=== PATIENT | male | born 1990 ===

== ENCOUNTER 2022-03-15 07:26 | Emergency (ER) | payer OTHER ==
--- NOTE | 2022-03-15 08:17 | ED ---
General Adult HPI - General Chief complaint: Skin/Abscess/Foreign Body Stated complaint: Facial Swelling Time Seen by Provider: 03/15/22 07:30 Source: patient, RN notes reviewed, old records reviewed Mode of arrival: ambulatory Limitations: no limitations - History of Present Illness Initial comments: This is a 31-year-old male who presents emergency Department with what he states his assisted is nose. Patient states she's got multiple lesions in the past. Patient states he went to urgent care stay start him on Bactrim but today it hasn't gotten any better so he came here thought maybe it could be lanced. Patient doesn't have any particular area of swelling or fluctuance. Patient denies any fever or chills. Patient states it is a little bit sore next to the left Neurontin his face but there is no redness in that area and there is no fluctuant abscess incised and was on the outside of his nose but he wanted another opinion. - Related Data Previous Rx's Medication Instructions Recorded Cephalexin [Keflex] 500 mg PO Q6HR #28 cap 03/15/22 Mupirocin 2% Oint [Bactroban 2% 1 applic NASAL BID #22 gm 03/15/22 Oint] Allergies Allergy/AdvReac Type Severity Reaction Status Date / Time amoxicillin Allergy Rash/Hives Verified 03/15/22 07:33 Review of Systems ROS Statement: Those systems with pertinent positive or pertinent negative responses have been documented in the HPI. ROS Other: All systems not noted in ROS Statement are negative. Past Medical History Past Medical History: No Reported History Past Surgical History: Orthopedic Surgery Past Psychological History: No Psychological Hx Reported Smoking Status: Current every day smoker, Vaper Past Alcohol Use History: Occasional Past Drug Use History: Marijuana General Exam - General Exam Comments Initial Comments: GENERAL: Patient is well-developed and well-nourished. Patient is nontoxic and well- hydrated and is in mild distress. ENT: Neck is soft and supple. No significant lymphadenopathy is noted. Oropharynx is clear. Moist mucous membranes. Neck has full range of motion without eliciting any pain. EYES: The sclera were anicteric and conjunctiva were pink and moist. Extraocular movements were intact and pupils were equal round and reactive to light. Eyelids were unremarkable. SKIN: The skin overlying the left naris is very red and extremely tender there is no area of fluctuance for possible I&D. The area next to his nose is mildly tender but there is no erythema or swelling. NEUROLOGIC: Patient is alert and oriented x3. Cranial nerves II through XII are grossly intact. Motor and sensory are also intact. Normal speech, volume and content. Symmetrical smile. MUSCULOSKELETAL: Normal extremities with adequate strength and full range of motion. LYMPHATICS: No significant lymphadenopathy is noted PSYCHIATRIC: Normal psychiatric evaluation. Limitations: no limitations Course Vital Signs 03/15/22 07:30 Temperature 98.4 F Pulse Rate 111 H Respiratory 18 Rate Blood Pressure 165/103 O2 Sat by Pulse 97 Oximetry Disposition Clinical Impression: Cellulitis of nose Disposition: HOME SELF-CARE Condition: Good Instructions (If sedation given, give patient instructions): Cellulitis (ED) Additional Instructions: Patient should take Motrin 600 mg every 6 hours and Tylenol with codeine for pain. Prescriptions: Mupirocin 2% Oint [Bactroban 2% Oint] 1 applic NASAL BID #22 gm Cephalexin [Keflex] 500 mg PO Q6HR #28 cap Is patient prescribed a controlled substance at d/c from ED?: No Referrals: None,Stated [Primary Care Provider] - 1-2 days Time of Disposition: 08:22
[2022-03-15] MEDS ORDERED: SULFAMETH-TMP DS STARTER PACK 2 TAB BTL PO STA (08:18)
[2022-03-15] MEDS ORDERED: ACET/COD 300 MG/30 MG STARTER PACK 6 TAB BTL PO STA (08:23)
[2022-03-15 08:43] VITALS: BP 151/96; PULSE 95; RESP 16; TEMP 98.1
== END 2022-03-15 09:23 | disposition home or self-care (01) ==
LOC: EC 07:26
DX: J34.0 Abscess, furuncle and carbuncle of nose (principal); F17.209 Nicotine dependence, unspecified, with unspecified nicotine-induced disorders; Z88.0 Allergy status to penicillin
CPT/HCPCS: 99283

== ENCOUNTER → 2022-10-12 | Outpatient (CLI) | payer BC ==
--- NOTE | 2022-10-12 11:19 | CA ---
Exercise Stress Test Report Name: Evgeny Zuluaga Exam Date: 10/12/2022 09:10 Exam Location: [place] Stress Ht (in): 74 Wt (lb): 220 BSA: 2.26 Ordering Phys: Nola Arguelles DO Referring Phys: Cierra Carrera PAC Technologist: Humberto Jaramillo Age: 32 Gender: M : 1990 Procedure CPT: Indications: R00.2 palpitations ICD-10 Codes: Patient History: DIFFICULTY IN BREATHING, PALPITATIONS, FAMILY HX OF HEART DISEASE, CURRENT SMOKER (VAPE PEN X 20 YEARS), ASTHMA Medications: PREDNISONE Meds past 24 hrs: Pretest Chest Pain: STRESS TEST Shlomo Protocol Exercise Duration (min:sec): 09:[address] Depressions (mm): Angina Score: Martin Score: Resting HR (bpm): 68 Peak HR (bpm): 159 Resting BP (mmHg): 128 / 75 Peak BP (mmHg): 207 / 56 MPHR: 186 Target HR: 158 % MPHR: 85 METS: 10.9 Total Dose: Peak Dose: Atropine: Double Product: 71953 BP Response: Stress Termination: TARGET HR REACHED/MAX EXERTION Stress Symptoms: NO SYMPTOMS Stress Summary: ECG ANALYSIS Resting ECG: Stress ECG: CONCLUSIONS Baseline heart rate 75 beats a minute, Baseline blood pressure 128/75 mmHg line baseline 12-lead EKG shows inferior lateral ST elevation(early repolarization abnormality Patient exercised on a Shloom protocol for 9 minutes 25 seconds achieving a peak heart rate of 154 beats a minute Mildly hypertensive response to exercise plan. Blood pressure 207/56 minutes mercury We seizures for ischemia No arrhythmias Impression good exercise capacity with improvement in ST segment elevation with exercise Peak blood pressure was 207/56 mmHg Patient complained of shortness of breath Dr. Mani Castorena MD (Electronically Signed) Final Date: 12 October 2022 11:18
== END | disposition home or self-care (01) ==
LOC: RADNMMAIN 08:50
PROVIDERS: ATTEND Family Medicine
DX: R00.2 Palpitations (principal); R06.02 Shortness of breath
CPT/HCPCS: 93017

== ENCOUNTER 2023-05-22 22:22 | Emergency (ER) | payer OTHER, BC ==
[2023-05-22 22:29] VITALS: RESP 18; TEMP 98.7
[2023-05-22] MEDS ORDERED: LIDOCAINE 1% INJ 10MG/ML (20 ML MDV) SQ ONE (22:59)
[2023-05-22] MEDS ORDERED: IBUPROFEN 800 MG TAB PO STA (23:03)
--- NOTE | 2023-05-23 00:27 | ED ---
Wound/Laceration HPI - General Chief Complaint: Wound/Laceration Stated Complaint: Cut thumb open- [facility] Time Seen by Provider: 05/22/23 22:59 Source: patient Mode of arrival: ambulatory Limitations: no limitations - History of Present Illness Initial Comments: Patient is a 32-year-old male who presents to the emergency department for laceration. Patient had left thumb pinched on a press at work. He has a shunt to the webbing of his left thumb. He reports mild pain. No numbness or tingling. No issues of range of motion. - Related Data Previous Rx's Medication Instructions Recorded Cephalexin [Keflex] 500 mg PO Q6HR #28 cap 03/15/22 Mupirocin 2% Oint [Bactroban 2% 1 applic NASAL BID #22 gm 03/15/22 Oint] Ibuprofen [Motrin] 800 mg PO Q8HR PRN #30 tab 05/23/23 Allergies Allergy/AdvReac Type Severity Reaction Status Date / Time amoxicillin Allergy Rash/Hives Verified 03/15/22 07:33 Review of Systems ROS Statement: Those systems with pertinent positive or pertinent negative responses have been documented in the HPI. ROS Other: All systems not noted in ROS Statement are negative. Past Medical History Past Medical History: No Reported History Past Surgical History: Orthopedic Surgery Past Psychological History: No Psychological Hx Reported Smoking Status: Current every day smoker, Vaper Past Alcohol Use History: Occasional Past Drug Use History: Marijuana General Exam Limitations: no limitations General appearance: alert Respiratory exam: Present: normal lung sounds bilaterally. Absent: respiratory distress, wheezes, rales, rhonchi, stridor Cardiovascular Exam: Present: regular rate, normal rhythm, normal heart sounds. Absent: systolic murmur, diastolic murmur, rubs, gallop, clicks Neurological exam: Present: alert Psychiatric exam: Present: normal affect, normal mood Skin exam: Present: warm, dry, intact, normal color, other (2 cm laceration webbing of left from no deep structures visualized. Full range of motion. Neurovascularly intact). Absent: rash Course Vital Signs 05/22/23 05/23/23 22:26 00:39 Temperature 98.7 F Pulse Rate 82 73 Respiratory 18 18 Rate Blood Pressure 132/80 145/87 O2 Sat by Pulse 97 96 Oximetry Procedures - Laceration Laceration #1 Indication: laceration Site: hand Description: irregular Pre-repair: wound explored, irrigated extensively Type of Sutures: nylon Size of Sutures: 4-0 Number of Sutures: 3 Technique: simple, interrupted Medical Decision Making - Medical Decision Making Was pt. sent in by a medical professional or institution ([facility] Burnham, CELLOPHANE WORKER, urgent care, hospital, or [facility]...) When possible be specific @ -No Did you speak to anyone other than the patient for history (EMS, parent, family, police, friend...)? What history was obtained from this source @ -No Did you review nursing and triage notes (agree or disagree)? Why? @ -I reviewed and agree with nursing and triage notes Were old charts reviewed (outside hosp., previous admission, EMS record, old EKG, old radiological studies, urgent care reports/EKG's, [facility] records)? Report findings @ -No old charts were reviewed Differential Diagnosis (chest pain, altered mental status, abdominal pain women, abdominal pain men, vaginal bleeding, weakness, fever, dyspnea, syncope, headache, dizziness, GI bleed, back pain, seizure, CVA, palpatations, mental health)? @ -Laceration, abrasion, tendon injury EKG interpreted by me (3pts min.). @ -As above X-rays interpreted by me (1pt min.). @ -None done CT interpreted by me (1pt min.). @ -None done U/S interpreted by me (1pt. min.). @ -None done What testing was considered but not performed or refused? (CT, X-rays, U/S, labs)? Why? @ -None What meds were considered but not given or refused? Why? @ -None Did you discuss the management of the patient with other professionals (professionals i.e. [facility] Burnham, CELLOPHANE WORKER, lab, RT, psych nurse, transition social worker, edi programmer analyst, teacher, president and chief commercial officer, caseworker intake)? Give summary @ -No Was smoking cessation discussed for >3mins.? @ -No Was critical care preformed (if so, how long)? @ -No Were there social determinants of health that impacted care today? How? (Homelessness, low income, unemployed, alcoholism, drug addiction, transportation, low edu. Level, literacy, decrease access to med. care, [facility], rehab)? @ -No Was there de-escalation of care discussed even if they declined (Discuss DNR or withdrawal of care, Hospice)? DNR status @ -No What co-morbidities impacted this encounter? (DM, HTN, Smoking, COPD, CAD, Cancer, CVA, ARF, Chemo, Hep., AIDS, mental health diagnosis, sleep apnea, morbid obesity)? @ -[None] Was patient admitted / discharged? Hospital course, mention meds given and route, prescriptions, significant lab abnormalities, going to OR and other pertinent info. @ -Discharged Undiagnosed new problem with uncertain prognosis? @ -[No] Drug Therapy requiring intensive monitoring for toxicity (Heparin, Nitro, Insulin, Cardizem)? @ -[No] Were any procedures done? @ -[No] Diagnosis/symptom? @ -[Laceration Acute, or Chronic, or Acute on Chronic? @ -Acute Uncomplicated (without systemic symptoms) or Complicated (systemic symptoms)? @ -Uncomplicated Side effects of treatment? @ -[No] Exacerbation, Progression, or Severe Exacerbation? @ -[No] Poses a threat to life or bodily function? How? (Chest pain, [place], [place], pneumonia, PE, COPD, DKA, ARF, appy, cholecystitis, CVA, Diverticulitis, Homicidal, Suicidal, threat to staff... and all critical care pts) @ -[No] Dr. Arguelles is my attending Disposition Clinical Impression: Laceration Disposition: HOME SELF-CARE Condition: Good Instructions (If sedation given, give patient instructions): Care For Your Stitches (ED), Laceration (ED) Additional Instructions: Leave wound uncovered. Keep wound clean and dry. Wash with a mild soap. Take Tylenol or anti-inflammatories such as Motrin for pain. Follow-up with primary care provider in 1-2 days. Return for suture removal in 7-10 days. Report back to the emergency department if you experience new, concerning, or worsening symptoms. Prescriptions: Ibuprofen [Motrin] 800 mg PO Q8HR PRN #30 tab PRN Reason: Pain Is patient prescribed a controlled substance at d/c from ED?: No Referrals: Nloa Arguelles DO [Primary Care Provider] - 1-2 days
[2023-05-23 00:40] VITALS: BP 145/87; PULSE 73
== END 2023-05-23 00:40 | disposition home or self-care (01) ==
LOC: EC 22:22
DX: S61.012A Laceration without foreign body of left thumb without damage to nail, initial encounter (principal); F17.290 Nicotine dependence, other tobacco product, uncomplicated; F12.90 Cannabis use, unspecified, uncomplicated; Z88.0 Allergy status to penicillin; W26.8XXA Contact with other sharp object(s), not elsewhere classified, initial encounter; Y99.0 Civilian activity done for income or pay
CPT/HCPCS: 99283; 12001; J2001